=== PATIENT | female | born 1950 | race Caucasian/White ===

== ENCOUNTER 2024-07-03 05:54 | Observation (INO) ==
[~2024-07-03 05:54] MED LIST: Metoclopramide 5 MG/ML VIAL (10 mg) IV PRN; NS 0.45% 1000 ml BAG 1,000 ML IV SCH; Naloxone 0.4 mg VIAL 0.4 mg/ml 1 ml VIAL IV PRN; Ondansetron 4 mg VIAL 2 MG/ML 2 ml VIAL IV PRN
[2024-07-03] MEDS ORDERED: ceFAZolin 2 GM PREMIX 2 GM/50 ML BAG ONE (06:17)
[2024-07-03] MEDS ORDERED: Tranexamic Acid 1 GM/100ML BAG 2,000 MG/200 ML BAG IV ONE (06:17)
[2024-07-03] MEDS ORDERED: Dexamethasone IV 4 MG/ML VIAL 1 ml VIAL ONE (06:38)
[2024-07-03] MEDS ORDERED: Rocuronium 50 mg VIAL 10 mg/ml 5 ml VIAL (50 mg) ONE ×3 (06:38→10:05)
[2024-07-03] MEDS ORDERED: Midazolam 2 mg/2 ml VIAL 1 mg/ml 2 ml VIAL (2 mg) ONE (06:38)
[2024-07-03] MEDS ORDERED: Propofol 10 MG/ML 20 ML BTL ONE (06:38)
[2024-07-03] MEDS ORDERED: fentaNYL 100 mcg/2 ml 50 MCG/ML VIAL ONE ×3 (06:38→12:05)
[2024-07-03] MEDS ORDERED: Ondansetron 4 mg VIAL 2 MG/ML 2 ml VIAL ONE (06:38)
[2024-07-03] MEDS ORDERED: Lidocaine 2% PF 5 ML VIAL ONE (06:38)
[2024-07-03 06:54] LABS: Rapid COVID-19 Molecular Undetected (Undetected)
[2024-07-03] MEDS ORDERED: Albuterol 2.5mg/3 ml (0.083%) NEB.SOLN INH ONE (06:57)
[2024-07-03] MEDS: Albuterol (2.5 MG) 0.5 % CONC 0.5 ML NEB.SOLN INH ONE (07:03)
[2024-07-03] MEDS ORDERED: Lidocaine 1% w EPI 1:200,000 SDV 30 ML VIAL ONE (07:43)
[2024-07-03] MEDS ORDERED: Phenylephrine 40 mcg/mL 10mL (400mcg) SYRINGE ONE (07:43)
[2024-07-03] MEDS ORDERED: Vancomycin 1,000 MG VIAL ONE (07:43)
[2024-07-03] MEDS ORDERED: Magnesium Hydroxide LIQ 30 ML UDC PO PRN (11:38)
[2024-07-03] MEDS ORDERED: Ondansetron 4 mg VIAL 2 MG/ML 2 ml VIAL IV PRN (11:38)
[2024-07-03] MEDS ORDERED: Lactulose 30 ml UDC PO PRN (11:38)
[2024-07-03] MEDS ORDERED: Ondansetron ODT 4 mg TAB 4 MG TAB PO PRN (11:38)
[2024-07-03] MEDS ORDERED: Morphine 2 MG/ML SYRINGE IV PRN (11:38)
[2024-07-03] MEDS: fentaNYL 100 mcg/2 ml 50 MCG/ML VIAL IV PRN (12:16)
[2024-07-03] MEDS: Lactated Ringers 1000 ml BAG 1,000 ML IV SCH ×2 (13:45→15:23)
[2024-07-03] MEDS ORDERED: Albuterol HFA INHALER 8 gm MDI INH PRN (15:13)
[2024-07-03] MEDS: Scopolamine 1 mg/72hr PATCH TRANSDERM ONE (15:23)
[2024-07-03] MEDS: Acetaminophen IV 1 GM/100ML 1,000 MG/100 ML BAG IV ONE (15:23)
[2024-07-03] MEDS: Buffered Lidocaine 1% SYRIN 1 ml INTRADERM ONE (15:23)
[2024-07-03] MEDS: ceFAZolin 1 GM ADVAN 1 GM in NS 0.9% 50 ML 50 ML IVPB SCH (15:49)
[2024-07-03] MEDS: Mometasone/Formoter 100/5 MDI INH SCH (20:24)
[2024-07-03] MEDS ORDERED: Fluticasone-Salmeterol 100-50 DISKUS NF INH SCH (21:00)
[2024-07-03] MEDS: Aspirin EC 81 mg TAB.EC (enteric coated) PO SCH (22:30)
[2024-07-03] MEDS: Magnesium Hydroxide LIQ 30 ML UDC PO SCH (22:38)
[2024-07-04] MEDS: Vitamin THERAPEUTIC TAB PO SCH (08:38)
[2024-07-04 09:34] LABS: Hematocrit 34.4 % (35-45); Hemoglobin 11.5 g/dL (11.5-14.3); Mean Platelet Volume 9.8 fL (7.5-11.2); Platelet Count 181 10^3/uL (150-450)
[2024-07-04 09:58] LABS: Calcium 8.9 mg/dL (8.6-10.3); Creatinine, Serum 0.64 mg/dL (0.51-0.95); Potassium 4.3 mmol/L (3.5-5.0); eGFR CKD-EPI 93.8 (>60)
[2024-07-04 11:07] VITALS: BP 105/48
[2024-07-04] MEDS ORDERED: Simvastatin 40 mg TAB (NF) PO SCH (21:00)
== END 2024-07-04 13:37 | disposition home or self-care (01) ==
LOC: SSU 05:54 → OR 05:54
PROVIDERS: ADMIT Orthopaedic Surgery; ATTEND Orthopaedic Surgery